=== PATIENT | female | born 1995 | race Caucasian/White ===

== ENCOUNTER 2018-06-15 16:22 | Emergency (ER) | payer OTHER ==
[~2018-06-15] VITALS: Ht 157.5 cm; Wt 62.1 kg
[~2018-06-15 16:22] MED LIST: ATI1 PO; PROZ10 PO
[2018-06-15 16:28] VITALS: Ht 157.5 cm; Wt 62.1 kg
[2018-06-15 16:58] LABS: microscopic required? NO
[2018-06-15 17:15] LABS: CARBON DIOXIDE 26.9 mmol/L (21-32); CHLORIDE SERUM 102 mmol/L (98-107); CREATININE SERUM 0.7 mg/dL (0.6-1.0); GFR1 > 60 mL/min; GLUCOSE SERUM 85 mg/dL (74-106); POTASSIUM SERUM 3.9 mmol/L (3.5-5.1); SODIUM SERUM 141 mmol/L (136-145)
[2018-06-15 17:17] LABS: AMPHETAMINE QUAL UR NONE DETECTED (See below)
[2018-06-15 17:18] LABS: BASOPHIL % 1.2 % (0-2); PLATELET COUNT 316 x10^3mcL (130-400)
[2018-06-15 17:20] LABS: urine erythrocyte NEGATIVE (NEGATIVE)
[2018-06-15 17:27] LABS: ALBUMIN 4.4 g/dL (3.4-5.0); ALKALINE PHOSPHATASE 66 U/L (46-116); ALT/SGPT 53 U/L (14-59); AMYLASE 86 U/L (25-115); AST/SGOT 40 U/L (15-37); BILIRUBIN TOTAL 0.2 mg/dL (0.20-1.00); LIPASE 179 IU/L (73-393); MAGNESIUM 2.2 mg/dL (1.8-2.4); T4(THYROXINE) 7.6 ug/dL (4.7-13.3)
[2018-06-15 17:33] LABS: TOTAL PROTEIN, SERUM 8.8 g/dL (6.4-8.2)
[2018-06-15 17:56] LABS: CHOLESTEROL 301 mg/dL (<200); HDL CHOLESTEROL 192 mg/dL (40-60)
[2018-06-15 18:58] VITALS: BP 121/77
== END 2018-06-15 18:58 | disposition home or self-care (01) ==
LOC: ED 16:22
PROVIDERS: Emergency Medicine
DX: F10.229 Alcohol dependence with intoxication, unspecified (principal); F12.10 Cannabis abuse, uncomplicated; F41.0 Panic disorder [episodic paroxysmal anxiety]
CPT/HCPCS: 82962; G0480; J3411; J3475; J3490; J7030; Q0092

== ENCOUNTER 2019-12-15 21:32 | Emergency (ER) | payer MEDICAID ==
[~2019-12-15] VITALS: Ht 160 cm; Wt 52.3 kg
[2019-12-15 22:36] LABS: BASOPHIL % 2.2 % (0-2); PLATELET COUNT 374 x10^3mcL (130-400); RED CELL DISTRIBUTION WIDTH 12.9 % (11.5-14.5)
[2019-12-15 22:45] LABS: CALCIUM 8.1 mg/dL (8.5-10.1); CARBON DIOXIDE 23.8 mmol/L (21-32); CHLORIDE SERUM 99 mmol/L (98-107); CREATININE SERUM 0.7 mg/dL (0.6-1.0); GFR1 > 60 mL/min; GLUCOSE SERUM 91 mg/dL (74-106); SODIUM SERUM 140 mmol/L (136-145)
[2019-12-15 22:49] LABS: ALBUMIN 4.3 g/dL (3.4-5.0); ALKALINE PHOSPHATASE 41 U/L (46-116); ALT/SGPT 26 U/L (14-59); AST/SGOT 31 U/L (15-37); BILIRUBIN TOTAL 0.3 mg/dL (0.20-1.00); TOTAL PROTEIN, SERUM 7.8 g/dL (6.4-8.2)
[2019-12-16 00:05] VITALS: BP 105/59
== END 2019-12-16 00:05 | disposition home or self-care (01) ==
LOC: ED 21:32
PROVIDERS: Emergency Medicine
DX: F10.129 Alcohol abuse with intoxication, unspecified (principal); R11.10 Vomiting, unspecified
CPT/HCPCS: G0480; J2060; J2405

== ENCOUNTER 2020-05-21 16:56 | Emergency (ER) | payer SELFPAY ==
[~2020-05-21] VITALS: Ht 157.5 cm; Wt 49.9 kg
[2020-05-21 16:59] VITALS: Ht 157.5 cm; Wt 49.9 kg
[2020-05-21 18:28] LABS: PLATELET COUNT 288 x10^3mcL (130-400)
[2020-05-21 18:39] LABS: CALCIUM 8.8 mg/dL (8.5-10.1); CARBON DIOXIDE 27.6 mmol/L (21-32); CHLORIDE SERUM 98 mmol/L (98-107); CREATININE SERUM 0.7 mg/dL (0.6-1.0); GFR1 > 60 mL/min; GLUCOSE SERUM 98 mg/dL (74-106); POTASSIUM SERUM 3.7 mmol/L (3.5-5.1); SODIUM SERUM 138 mmol/L (136-145)
[2020-05-21 18:41] LABS: RED CELL DISTRIBUTION WIDTH 15.4 % (11.5-14.5)
[2020-05-21 18:44] LABS: ALBUMIN 4.5 g/dL (3.4-5.0); ALKALINE PHOSPHATASE 49 U/L (46-116); ALT/SGPT 40 U/L (14-59); AST/SGOT 48 U/L (15-37); BILIRUBIN TOTAL 0.4 mg/dL (0.20-1.00)
[2020-05-21 18:46] LABS: TOTAL PROTEIN, SERUM 8.4 g/dL (6.4-8.2)
[2020-05-21 19:56] LABS: BAND NEUTROPHIL 4 % (0-10); MONOCYTE 6 % (0-7); SEGMENTED NEUTROPHILS 40 % (37-75)
[2020-05-21 19:57] LABS: PLATELET MORPHOLOGY PLATELETS NORMAL; rbc morphology (normal/abnorm) NORMAL (NORMAL)
[2020-05-21 20:32] VITALS: BP 116/80
== END 2020-05-21 20:32 | disposition home or self-care (01) ==
LOC: ED 16:56
PROVIDERS: Emergency Medicine
DX: F10.239 Alcohol dependence with withdrawal, unspecified (principal)
CPT/HCPCS: G0480; J2060; J2405

== ENCOUNTER 2020-06-26 14:24 | Emergency (ER) | payer MEDICAID ==
[~2020-06-26] VITALS: Ht 160 cm; Wt 51.7 kg
[2020-06-26 15:12] VITALS: BP 133/99; Ht 160 cm; Wt 51.7 kg
== END 2020-06-26 17:05 | disposition left against medical advice (07) ==
LOC: ED 14:24
DX: Z53.21 Procedure and treatment not carried out due to patient leaving prior to being seen by health care provider (principal)
CPT/HCPCS: Q0162